=== PATIENT | female | born 1955 | race Caucasian/White ===

== ENCOUNTER 2016-07-01 09:36 | Outpatient (CLI) | payer OTHER | END 2016-07-01 18:07 | disposition home or self-care (01) | LOC: SMA 09:36 | PROVIDERS: ATTEND Family Medicine | DX: Z12.31 Encounter for screening mammogram for malignant neoplasm of breast (principal) | CPT/HCPCS: 77067; G0202 ==

== ENCOUNTER 2018-06-28 09:40 | Outpatient (CLI) | payer BC | END 2018-06-28 19:26 | disposition home or self-care (01) | LOC: SMA 09:40 | PROVIDERS: ATTEND Family Medicine | DX: Z12.31 Encounter for screening mammogram for malignant neoplasm of breast (principal) | CPT/HCPCS: 77067 ==